=== PATIENT | male | born 1980 | race African-American/Black ===

== ENCOUNTER 2018-10-13 18:44 | Emergency (ER) | payer BC, SELFPAY ==
[2018-10-13] MEDS ORDERED: Morphine 4 MG/ML VIAL ONE (19:29)
[2018-10-13] MEDS ORDERED: Ondansetron PF 4 MG/2 ML Vial ONE (19:29)
[2018-10-13 19:59] LABS: #Basophils 0.1 thou/uL (0.0-0.2); #Eosinphils 0.1 thou/uL (0.0-0.7); #Lymphocytes 1.7 thou/uL (1.20-3.40); #Monocytes 0.3 thou/uL (0.11-0.59); #Neutrophils 2.1 thou/uL (1.40-6.50); %Basophils 1.9 % (0.0-1.0); %Eosinophils 3.1 % (0.0-10.0); %Lymphocytes 38.6 % (21.0-51.0); %Monocytes 7.2 % (0.0-10.0); %Neutrophils 49.3 % (42.0-75.0); Hemoglobin 14.2 g/dL (14.0-18.0); Mean Corpuscular HGB CONC 32.7 g/dL (32.0-36.0); Mean Corpuscular Hemoglobin 27.3 pg (27.0-31.0); Mean Corpuscular Volume 83.4 fL (78.0-98.0); Mean Platelet Volume 8.3 fL (7.4-10.4); Platelet Count 200 thou/uL (130-400); RBC Distribution Width 14.1 % (11.5-14.5); Red Blood Cell (RBC) Count 5.19 mill/uL (4.70-6.10); White Blood Cell (WBC) Count 4.3 thou/uL (4.8-10.8)
[2018-10-13 20:04] LABS: Bilirubin Negative (Negative); Blood, Urine Trace (Negative); Clarity Clear (Clear); Glucose, Urine (Dipstick) Negative (Negative); Leukocyte Negative (Negative); Nitrite Negative (Negative); Protein, Urine (Dipstick) Negative (Neg-Trace); Specific Gravity, Urine 1.028 (1.002-1.036); Urobilinogen 0.2 mg/dL (0.2-1.0)
[2018-10-13 20:06] LABS: Bacteria/HPF Rare-Few HPF (None Seen); RBC/HPF 0-3 HPF (0-3); Squamous Epithelial None Seen HPF (0-3); WBC/HPF None Seen HPF (0-3)
[2018-10-13 20:16] LABS: ALT (SGPT) 28 U/L (8-55); AST (SGOT) 27 U/L (5-34); Alkaline Phosphatase 62 U/L (40-150); Anion Gap 11 mmol/L (10-20); BUN (Urea Nitrogen) 15 mg/dL (8.9-20.6); Bilirubin, Total 0.2 mg/dL (0.2-1.2); Calc. Creatinine Clearance 0 mL/min (70-130); Calcium 9.6 mg/dL (7.8-10.44); Carbon Dioxide 25 mmol/L (22-29); Chloride 107 mmol/L (98-107); Estimated GFR-MDRD 75; Globulin 3.2 g/dL (2.4-3.5); Glucose 90 mg/dL (70-105); Lipase 31 U/L (8-78); Potassium 4.4 mmol/L (3.5-5.1); Protein, Total 7.2 g/dL (6.0-8.3); Sodium 139 mmol/L (136-145)
--- NOTE | 2018-10-13 20:23 | CT ---
CT Stone Protocol HISTORY: Left flank pain, history of kidney stones. COMPARISON: 01/09/2018 CT examination. FINDINGS: The lung bases are clear of infiltrates. The liver spleen pancreas and gallbladder regions appear unremarkable given the limitations of a nonc ontrast study. Right and left adrenal glands are normal in size and appearance. Right and left kidneys are normal in size there are no renal calculi demonstrated. There is minimal dilatation of the left collecting system and left ureter this is associated with a calculus measuring 4 to 5 mm in size near the left u reterovesical junction, it appears to been expelled into the bladder. There is no significant periaortic or mesenteric adenopathy. CT of pelvis performed without contrast enhancement: The appendix is normal in size. No adenopathy or mass. IMPRESSION: Minimal left-sided hydronephrosis and hydroureter related to a approximately 4 to 5 mm ca lculus which is been expelled into the bladder.
== END 2018-10-13 20:55 | disposition home or self-care (01) ==
LOC: SCSER 18:44
DX: N13.2 Hydronephrosis with renal and ureteral calculous obstruction (principal)
CPT/HCPCS: 74176; 80053; 81003; 81015; 83690; 85025; 96374; 96375; J2270; J2405